=== PATIENT | male | born 1955 ===

== ENCOUNTER 2020-10-15 09:46 | Emergency (ER) | payer MEDICARE, MEDICAID ==
--- NOTE | 2020-10-15 10:16 | EDM.PDOC ---
ED HPI GENERAL MEDICAL PROBLEM - General Chief Complaint: Neuro Symptoms/Deficits Stated Complaint: MEDICAL VIA NORTH Time Seen by Provider: 10/15/20 09:50 Source of Information: Reports: Patient, EMS, RN Notes Reviewed History Limitations: Reports: No Limitations - History of Present Illness INITIAL COMMENTS - FREE TEXT/NARRATIVE: 65-year-old gentleman presents emergency department today via EMS services for strokelike symptoms, he has a very complicated medical history was recently discharged from the [facility] for an intra-abdominal infection he does have a history of an LVAD also history of oblique fracture in the left hip status post repair however he states this leg has not functioned properly for the last year and a half, he also states he has not seen his primary care also for 1 year. He describes the event at the breakfast table this morning as his right hand shaking when he attempted to reach for his napkin at which time he then went to the ground. Per report from nursing staff who I spoke to as well as ambulance crew they state left-sided weakness left-sided facial droop and slurring of words. At this time he feels he is back to his baseline. During the interview he became very frustrated with me informed me that I was a "quack physician" and wanted to go home, my exam was limited patient advocate was contacted after discussion he agreed to go through an exam but he informed myself and nurse manager post that he does not want any further image studies done or any further blood work done just wants to go home. - Related Data Allergies Allergy/AdvReac Type Severity Reaction Status Date / Time No Known Allergies Allergy Verified 10/15/20 10:06 Home Meds: Home Meds Acetaminophen 1,000 mg PO Q6HR 10/15/20 [History] Aspirin 325 mg PO DAILY 10/15/20 [History] Digoxin 125 mcg PO DAILY 10/15/20 [History] Furosemide 20 mg PO DAILY PRN 10/15/20 [History] Insulin Aspart [Insulin Aspart Flexpen] 7 unit SQ TID 10/15/20 [History] Insulin Aspart [Insulin Aspart Penfill] 100 unit SQ ASDIRECTED 10/15/20 [History] Levothyroxine [Synthroid] 50 mcg PO ACBREAKFAST 10/15/20 [History] Lidocaine 5% [Lidoderm 5%] 1 patch TOP DAILY 10/15/20 [History] Magnesium Oxide 400 mg PO DAILY 10/15/20 [History] Melatonin 5 mg PO BEDTIME PRN 10/15/20 [History] Minocycline [Minocin] 100 mg PO BID 10/15/20 [History] OLANZapine [Olanzapine] 2.5 mg PO BEDTIME PRN 10/15/20 [History] Pantoprazole [ProTONIX] 40 mg PO BEDTIME 10/15/20 [History] Rosuvastatin [Crestor] 10 mg PO BEDTIME 10/15/20 [History] Sennosides [Senna] 8.6 mg PO BEDTIME PRN 10/15/20 [History] Sildenafil Citrate 20 mg PO TID 10/15/20 [History] Sodium Chloride 0.9 % (Flush) [Normal Saline Flush] 10 ml FLUSH BID 10/15/20 [History] Tamsulosin [Tamsulosin 24 Hr] 0.4 mg PO DAILY 10/15/20 [History] Vancomycin 750 mg IV DAILY 10/15/20 [History] Warfarin [Coumadin] 5 mg PO DAILY 10/15/20 [History] Warfarin [Coumadin] 7 mg PO DAILY 10/15/20 [History] carvediloL [Carvedilol] 12.5 mg PO BID 10/15/20 [History] oxyCODONE 2.5 mg PO Q4H PRN 10/15/20 [History] polyethylene glycoL 3350 [MiraLAX] 17 gm PO DAILY PRN 10/15/20 [History] Past Medical History HEENT History: Reports: Impaired Vision Cardiovascular History: Reports: Bypass, CAD, High Cholesterol, Hypertension, Other (See Below) (LVAD in place) Neurological History: Reports: CVA 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 Endocrine/Metabolic History: Reports: Diabetes, Type I - Past Surgical History Other Cardiovascular Surgeries/Procedures: lvad Musculoskeletal Surgical History: Reports: Hip Replacement Other Musculoskeletal Surgeries/Procedures:: L5 lumbar Social & Family History - Tobacco Use Tobacco Use Status *Q: Former Tobacco User Used Tobacco, but Quit: Yes Month/Year Tobacco Last Used: 7 - Caffeine Use Caffeine Use: Reports: Coffee - Recreational Drug Use Recreational Drug Use: No ED ROS GENERAL - Review of Systems Review Of Systems: See Below Constitutional: Reports: No Symptoms HEENT: Reports: No Symptoms Respiratory: Reports: No Symptoms Cardiovascular: Reports: No Symptoms GI/Abdominal: Reports: No Symptoms : Reports: No Symptoms Musculoskeletal: Reports: No Symptoms Neurological: Reports: Trouble Speaking, Weakness ED EXAM, NEURO - Physical Exam Exam: See Below Text/Narrative:: Cranial nerves , CN V good jaw movement, CN VII symmetrical smile shows teeth without difficulty, CN IX adequate voice and tone, CN X adequate voice and tone no difficulty swallowing, CN XI can shrug shoulders without difficulty, CN XII can stick tongue out without difficulty, cranial nerves tested intact as tested, power is 5 out 5 in upper and right lower extremities, left does not move, no focal neurologic deficit Exam Limited By: No Limitations General Appearance: Alert, WD/WN, No Apparent Distress Head Exam: Atraumatic, Normocephalic Neck: Normal Inspection, Supple, Non-Tender, Full Range of Motion Respiratory/Chest: No Respiratory Distress, Lungs Clear, Normal Breath Sounds, No Accessory Muscle Use, Chest Non-Tender GI/Abdominal: Other (Mechanical sound consistent with an LVAD) Neurological: Alert, Oriented x 3 Course - Vital Signs Last Recorded V/S: Last Vital Signs Temp 96.5 F L 10/15/20 09:50 Pulse 76 10/15/20 09:50 Resp 18 10/15/20 09:50 BP 93/71 10/15/20 09:50 Pulse Ox 100 10/15/20 09:50 Departure - Departure Time of Disposition: 10:19 Disposition: Against Medical Advice 07 Condition: Poor Clinical Impression: Stroke-like symptom - Discharge Information Referrals: PCP,None [Primary Care Provider] - Additional Instructions: Return to the emergency department if needed Sepsis Event Note (ED) - Evaluation Sepsis Screening Result: No Definite Risk - Focused Exam Vital Signs: Vital Signs Temp Pulse Resp BP Pulse Ox 10/15/20 09:50 96.5 F L 76 18 93/71 100 - Assessment/Plan Plan: Assessment Acuity = acute Site and laterality = strokelike symptoms Etiology = unknown Manifestations = none Location of injury = Home Lab values = none Plan Patient has refused medical care and therefore is AGAINST MEDICAL ADVICE The patient is clinically sober, free from distracting injury, appears to have intact insight and judgment and reason and in my opinion has the capacity to make decisions. The patient presents with strokelike symptoms. I have explained that I am concerned that this may represent cerebrovascular accident; they have verbalized an understanding of my concerns. I have discussed with the patient the lab work and image studies during the evaluation in the emergency department. I have discussed the CT scan and blood work which he adamantly declines. I have told the patient that if they leave and have cerebrovascular accident, they could get much worse, could become critically ill, and could possibly become disabled or . I have offered to a stroke work-up evaluation. The patient is refusing any further care and is leaving against medical advice. I am unable to convince the patient to stay, I have asked them to return as soon as possible to complete their evaluation. I have the patient to follow up with primary care. I have answered all their questions. This note was dictated using Credible voice recognition software please call with any questions on syntax or grammar.
== END 2020-10-15 15:07 | disposition left against medical advice (07) ==
LOC: JP.ED 09:46
DX: R25.9 Unspecified abnormal involuntary movements (principal); R29.810 Facial weakness; I25.10 Atherosclerotic heart disease of native coronary artery without angina pectoris; E78.00 Pure hypercholesterolemia, unspecified; I10 Essential (primary) hypertension; Z86.73 Personal history of transient ischemic attack (TIA), and cerebral infarction without residual deficits; Z95.1 Presence of aortocoronary bypass graft; E10.9 Type 1 diabetes mellitus without complications; Z79.82 Long term (current) use of aspirin; Z79.01 Long term (current) use of anticoagulants; Z79.899 Other long term (current) drug therapy; Z87.891 Personal history of nicotine dependence
CPT/HCPCS: 99283; 99285

== ENCOUNTER 2020-12-26 01:14 | Emergency (ER) | payer MEDICARE, MEDICAID ==
--- NOTE | 2020-12-26 01:25 | EDM.PDOC ---
<OfficerAman - Last Filed: 12/26/20 06:04> ED HPI GENERAL MEDICAL PROBLEM - General Chief Complaint: Head Injury Stated Complaint: FALL VIA NORTH Time Seen by Provider: 12/26/20 01:17 Source of Information: Reports: Patient, EMS, RN Notes Reviewed History Limitations: Reports: Altered Mental Status - History of Present Illness INITIAL COMMENTS - FREE TEXT/NARRATIVE: 65-year-old gentleman presents emergency department today via EMS services. He is a resident of an assisted living facility per report he had a fall earlier in the day where he hit his head. Unwitnessed, found by staff this evening being unarousable. - Related Data Allergies Allergy/AdvReac Type Severity Reaction Status Date / Time No Known Allergies Allergy Verified 12/26/20 01:47 Home Meds: Home Meds Acetaminophen 1,000 mg PO Q6HR 10/15/20 [History] Aspirin 325 mg PO DAILY 10/15/20 [History] Digoxin 125 mcg PO DAILY 10/15/20 [History] Furosemide 20 mg PO DAILY PRN 10/15/20 [History] Insulin Aspart [Insulin Aspart Flexpen] 7 unit SQ TID 10/15/20 [History] Insulin Aspart [Insulin Aspart Penfill] 100 unit SQ ASDIRECTED 10/15/20 [History] Levothyroxine [Synthroid] 50 mcg PO ACBREAKFAST 10/15/20 [History] Lidocaine 5% [Lidoderm 5%] 1 patch TOP DAILY 10/15/20 [History] Magnesium Oxide 400 mg PO DAILY 10/15/20 [History] Melatonin 5 mg PO BEDTIME PRN 10/15/20 [History] Minocycline [Minocin] 100 mg PO BID 10/15/20 [History] OLANZapine [Olanzapine] 2.5 mg PO BEDTIME PRN 10/15/20 [History] Pantoprazole [ProTONIX] 40 mg PO BEDTIME 10/15/20 [History] Rosuvastatin [Crestor] 10 mg PO BEDTIME 10/15/20 [History] Sennosides [Senna] 8.6 mg PO BEDTIME PRN 10/15/20 [History] Sildenafil Citrate 20 mg PO TID 10/15/20 [History] Sodium Chloride 0.9 % (Flush) [Normal Saline Flush] 10 ml FLUSH BID 10/15/20 [History] Tamsulosin [Tamsulosin 24 Hr] 0.4 mg PO DAILY 10/15/20 [History] Vancomycin 750 mg IV DAILY 10/15/20 [History] Warfarin [Coumadin] 5 mg PO DAILY 10/15/20 [History] Warfarin [Coumadin] 7 mg PO DAILY 10/15/20 [History] carvediloL [Carvedilol] 12.5 mg PO BID 10/15/20 [History] oxyCODONE 2.5 mg PO Q4H PRN 10/15/20 [History] polyethylene glycoL 3350 [MiraLAX] 17 gm PO DAILY PRN 10/15/20 [History] Past Medical History HEENT History: Reports: Impaired Vision Cardiovascular History: Reports: Bypass, CAD, High Cholesterol, Hypertension, Other (See Below) (LVAD in place) Neurological History: Reports: CVA 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 Endocrine/Metabolic History: Reports: Diabetes, Type I - Past Surgical History Other Cardiovascular Surgeries/Procedures: lvad Musculoskeletal Surgical History: Reports: Hip Replacement Other Musculoskeletal Surgeries/Procedures:: L5 lumbar Social & Family History - Caffeine Use Caffeine Use: Reports: Coffee ED ROS GENERAL - Review of Systems Review Of Systems: Unable To Obtain Reason Not Obtained: GCS 3 ED EXAM, NEURO - Physical Exam Exam: See Below Exam Limited By: Altered Mental Status General Appearance: Obtunded Eye Exam: Bilateral Eye: PERRL (both are fixed) Head Exam: Other (Bruising right side of the scalp) Respiratory/Chest: Lungs Clear Cardiovascular: Regular Rate, Rhythm GI/Abdominal: Soft Course - Re-Assessments/Exams Free Text/Narrative Re-Assessment/Exam: 12/26/20 06:04 Called and discussed the case with his power of divorce attorney Ema Whitfield, she agreed to honor his wishes that he is a DO NOT RESUSCITATE DO NOT INTUBATE does not want any artificial means of life therefore will allow for natural however she would like to be present when the LVAD is turned off. The plan is that she will ride from [employer] early this morning Departure - Departure Disposition: 20 Clinical Impression: , Intracranial bleeding, Subdural hemorrhage - Discharge Information Referrals: PCP,None [Primary Care Provider] - Forms: ED Department Discharge <Jonathan Bryan - Last Filed: 12/26/20 09:24> Course - Vital Signs Last Recorded V/S: Last Vital Signs Temp 36.6 C 12/26/20 03:32 Pulse 54 L 12/26/20 08:07 Resp 25 H 12/26/20 08:07 BP 110/53 L 12/26/20 08:07 Pulse Ox 88 L 12/26/20 08:07 - Orders/Labs/Meds Meds: Medications Discontinued Medications Generic Name Dose Route Start Last Admin Trade Name Deepika PRN Reason Stop Dose Admin Morphine Sulfate 4 mg 12/26/20 03:25 12/26/20 03:42 Morphine 4 Mg/Ml Syringe IVPUSH 12/26/20 03:26 4 mg ONETIME ONE Administration Departure - Departure Time of Disposition: 09:20 Condition: Critical - Discharge Information *PRESCRIPTION DRUG MONITORING PROGRAM REVIEWED*: Not Applicable *COPY OF PRESCRIPTION DRUG MONITORING REPORT IN PATIENT [place]: Not Applicable Sepsis Event Note (ED) - Focused Exam Vital Signs: Vital Signs Temp Pulse Resp BP Pulse Ox 12/26/20 08:07 54 L 25 H 110/53 L 88 L 12/26/20 07:07 79 27 H 101/72 100 12/26/20 05:43 88 27 H 104/77 98 12/26/20 04:28 86 24 H 104/77 97 12/26/20 03:32 36.6 C 85 26 H 121/94 H 95 12/26/20 02:04 36.3 C 85 18 120/94 H 92 L 12/26/20 01:54 36.3 C 85 18 120/94 H 92 L
--- NOTE | 2020-12-26 01:35 | CRLCT ---
INDICATION: Head injury from fall, loss of consciousness TECHNIQUE: CT Head without i.v. contrast. Coronal and sagittal reformats were obtained. COMPARISON: None FINDINGS: CSF space: Severe rightward midline shift by 17 mm is noted. Effacement of the suprasellar cistern is noted. Brain: There is a large left holohemispheric subdural hematoma measuring 2.8 cm in maximal width. A small right subdural hematoma is present measuring 4 mm. A trace amount of subdural blood is seen along the falx. Mild diffuse cortical atrophy is noted. Moderate patchy regions of low attenuation are present in the periventricular white matter, likely due to chronic microvascular ischemic changes. Encephalomalacia is present within the right occipital lobe. Calvarium: The visualized paranasal sinuses are well aerated. The mastoid air cells are clear. The visualized orbits are grossly unremarkable. The calvarium is unremarkable in appearance with no fractures identified. IMPRESSIONS: 1. There is a large left holohemispheric subdural hematoma measuring 2.8 cm in maximal width. A small right subdural hematoma is present measuring 4 mm. A trace amount of subdural blood is seen along the falx. 2. Severe rightward midline shift by 17 mm is noted. Effacement of the suprasellar cistern is noted. Findings are consistent with subfalcine and uncal herniation. The findings were discussed with Officer at 1:33 AM. Dictated by Scott Melo MD @ 12/26/2020 1:32:37 AM Please note that all CT scans at this facility use dose modulation, iterative reconstruction, and/or weight-based dosing when appropriate to reduce radiation dose to as low as reasonably achievable. Dictated by: Scott Melo MD @ 12/26/2020 01:33:41 (Electronically Signed)
[2020-12-26] MEDS ORDERED: Morphine 4 MG/ML Syringe IVPUSH ONE (03:25)
== END 2020-12-26 11:30 | disposition expired ==
LOC: JP.ED 01:14
DX: S06.5X9A Traumatic subdural hemorrhage with loss of consciousness of unspecified duration, initial encounter (principal); I25.10 Atherosclerotic heart disease of native coronary artery without angina pectoris; E78.00 Pure hypercholesterolemia, unspecified; I10 Essential (primary) hypertension; E10.9 Type 1 diabetes mellitus without complications; Z79.01 Long term (current) use of anticoagulants; Z79.899 Other long term (current) drug therapy; Z95.1 Presence of aortocoronary bypass graft; Z86.73 Personal history of transient ischemic attack (TIA), and cerebral infarction without residual deficits; Z79.82 Long term (current) use of aspirin; W19.XXXA Unspecified fall, initial encounter
CPT/HCPCS: 70450; 96374; 99285; J2270; 99284